=== PATIENT | female | born 1975 | race Caucasian/White ===

== ENCOUNTER 2021-05-03 14:20 | Emergency (ER) | payer BC ==
[2021-05-03] MEDS ORDERED: SODIUM CHLORIDE 0.9% 1,000 ML IV STA (14:29)
[2021-05-03 14:36] VITALS: BP 141/69
[2021-05-03] MEDS ORDERED: DICYCLOMINE 10 MG CAPSULE PO STA ×2 (14:53→16:23)
--- NOTE | 2021-05-03 14:56 | ED Physician Documentation ---
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 She is had profuse diarrhea ever since. There is no associated nausea or fevers. She ate oysters at [employer] [facility] yesterday. No recent travel internationally, no recent antibiotics, no fresh water exposure. Review of Systems Constitutional: denies: Fever, Chills Ears: reports: Loss of hearing Cardiac: denies: Chest pain / pressure, Palpitations Respiratory: denies: Dyspnea, Cough PD PAST MEDICAL HISTORY - Present Medications Home Medications: Ambulatory Orders Medication Instructions Recorded Confirmed Dicyclomine [Bentyl] 1 - 2 tab PO QID PRN #20 cap 05/03/21 Loperamide [Imodium] 2 mg PO QID PRN #10 cap 05/03/21 - Allergies Allergies/Adverse Reactions: Allergies Allergy/AdvReac Type Severity Reaction Status Date / Time No Known Drug Allergies Allergy Verified 05/03/21 14:36 PD ED PE NORMAL - Vitals Vital signs reviewed: Yes - General General: Alert and oriented X 3, No acute distress - Cardiac Cardiac: RRR, No murmur - Respiratory Respiratory: No respiratory distress, Clear bilaterally - Abdomen Abdomen: Normal bowel sounds, Soft, Non tender - Neuro Neuro: Alert and oriented X 3, Normal speech Results - Vitals Vitals: Vital Signs - 24 hr 05/03/21 14:32 Temperature 36.4 C L Heart Rate 97 Respiratory 16 Rate Blood Pressure 141/69 H O2 Saturation 99 Oxygen O2 Source Room air - Labs Labs: Laboratory Tests 05/03/21 05/03/21 05/03/21 15:04 15:04 15:04 WBC 18.8 H RBC 4.88 Hgb 14.6 Hct 43.9 MCV 90.0 MCH 29.9 MCHC 33.3 RDW 12.8 Plt Count 291 MPV 10.4 Neut # (Auto) 16.7 H Lymph # (Auto) 0.8 L [place] # (Auto) 1.1 H Eos # (Auto) 0.2 Baso # (Auto) 0.1 Absolute Nucleated RBC 0.00 Nucleated RBC % 0.0 Sodium 138 Potassium 3.7 Chloride 102 Carbon Dioxide 25 Anion Gap 11.0 BUN 13 Creatinine 0.7 Estimated GFR (MDRD) 90 Glucose 129 H Calcium 9.9 Phosphorus 2.4 L Magnesium 2.1 Total Bilirubin 1.1 H AST 24 ALT 16 Alkaline Phosphatase 43 Total Protein 7.7 Albumin 4.6 Globulin 3.1 Albumin/Globulin Ratio 1.5 PD MEDICAL DECISION MAKING - ED course ED course: 45-year-old woman presents with acute profuse diarrhea after eating oysters. Presume vibrio para hemolyticus especially given the elevated white count. She was able to produce a stool sample here. She declined IV fluids based on a dislike of needles. Review of up-to-date literature suggested a single dose of 300 mg of doxycycline is probably sufficient for presumed vibrio diarrhea and this is administered here. Departure - Departure Disposition: 01 Home, Self Care Clinical Impression: Diarrhea Qualifiers: Diarrhea type: presumed infectious Qualified Code(s): R19.7 - Diarrhea, unspecified Condition: Good Record reviewed to determine appropriate education?: Yes Instructions: ED Gastroenteritis Report Pend Prescriptions: Dicyclomine [Bentyl] 1 - 2 tab PO QID PRN #20 cap PRN Reason: Abdominal Pain Loperamide [Imodium] 2 mg PO QID PRN #10 cap PRN Reason: Diarrhea Comments: The single dose of doxycycline we gave you here should complete the course of antibiotic therapy for presumed vibrio para hemolyticus. Return for new or worsening symptoms. Drink plenty of fluids. You have a Stool culture test pending. We will call with a positive result, the fastest way to get a negative result for confirmation though is to go to the [employer] website at [email or web address], click on the my [employer] tab and sign up for the patient portal. Discharge Date/Time: 05/03/21 16:51
[2021-05-03 15:22] LABS: MAGNESIUM 2.1 mg/dL (1.7-2.8); PHOSPHORUS 2.4 mg/dL (2.5-4.6)
[2021-05-03 15:44] LABS: BASOPHILS # (AUTO) 0.1 10^3/uL (0.0-0.1); BASOPHILS % (AUTO) 0.3 %; EOSINOPHILS # (AUTO) 0.2 10^3/uL (0.0-0.7); EOSINOPHILS % (AUTO) 0.8 %; HCT - HEMATOCRIT 43.9 % (37.0-47.0); HGB - HEMOGLOBIN 14.6 g/dL (12.0-16.0); LYMPHOCYTES # (AUTO) 0.8 10^3/uL (1.5-3.5); LYMPHOCYTES % (AUTO) 4.1 %; MEAN CORPUSCULAR HEMOGLOBIN 29.9 pg (27.0-31.0); MEAN CORPUSCULAR HGB CONC 33.3 g/dL (32.0-36.0); MEAN PLATELET VOLUME 10.4 fL (7.9-10.8); MONOCYTES # (AUTO) 1.1 10^3/uL (0.0-1.0); NEUTROPHILS # (AUTO) 16.7 10^3/uL (1.5-6.6); NEUTROPHILS % (AUTO) 88.5 %; PLT - PLATELET COUNT 291 10^3/uL (130-450); RED BLOOD COUNT 4.88 10^6/uL (4.20-5.40); RED CELL DISTRIBUTION WIDTH 12.8 % (12.0-15.0); WHITE BLOOD COUNT 18.8 x10^3/uL (4.8-10.8)
[2021-05-03 16:06] LABS: ALBUMIN 4.6 g/dL (3.2-5.5); ALBUMIN/GLOBULIN RATIO 1.5 (1.0-2.2); BILIRUBIN,TOTAL 1.1 mg/dL (0.2-1.0); CALCIUM 9.9 mg/dL (8.5-10.3); CREATININE 0.7 mg/dL (0.4-1.0); POTASSIUM 3.7 mmol/L (3.5-5.0); TOTAL PROTEIN 7.7 g/dL (6.7-8.2)
[2021-05-03] MEDS ORDERED: DOXYCYCLINE 100 MG TABLET PO STA (16:23)
[2021-05-03] MEDS ORDERED: LOPERAMIDE 2 MG CAPSULE PO STA (16:23)
== END 2021-05-03 16:51 | disposition home or self-care (01) ==
LOC: ED 14:20
DX: R19.7 Diarrhea, unspecified (principal)
CPT/HCPCS: 36415; 80053; 81599; 83735; 84100; 85025; 99283; 99284; A9270; 83690; 87045; 87046